=== PATIENT | female | born 1970 | race Caucasian/White ===

== ENCOUNTER → 2018-07-27 | Outpatient (CLI) | payer OTHER | LOC: BRMIMAGING 15:59 | PROVIDERS: ATTEND Internal Medicine | DX: M19.042 Primary osteoarthritis, left hand (principal); M19.041 Primary osteoarthritis, right hand; M25.561 Pain in right knee; M25.562 Pain in left knee; M85.441 Solitary bone cyst, right hand; L53.9 Erythematous condition, unspecified | CPT/HCPCS: 73130-PO; 73562-PO ==